=== PATIENT | male | born 1970 | race Caucasian/White ===

== ENCOUNTER → 2017-11-24 | Outpatient (CLI) | payer BC ==
[~2017-11-24] MED LIST: ASPI81TA28 PO; CEPH500C2 PO; LEVO88TA PO; OXYC-57 PO
== END | disposition home or self-care (01) ==
LOC: C.LAB 07:26
DX: E03.9 Hypothyroidism, unspecified (principal)

== ENCOUNTER 2017-12-03 12:40 | Emergency (ER) | payer BC ==
[~2017-12-03] VITALS: Ht 175.3 cm; Wt 86.5 kg
[~2017-12-03 12:40] MED LIST changes: -CEPH500C2 PO; -LEVO88TA PO; -OXYC-57 PO
[2017-12-03 12:43] VITALS: Ht 175.3 cm; Wt 86.5 kg
[2017-12-03] MEDS ORDERED: BUPIVACAINE 0.5 % 5 MG/1 ML MPF 30ML VIAL INFIL STA (12:56)
[2017-12-03] MEDS ORDERED: XYLOCAINE 1%/SOD BICARB 20 ML VIAL INFIL STA (12:56)
[2017-12-03] MEDS ORDERED: LEVO88TA PO (13:04)
--- NOTE | 2017-12-03 13:42 | EMERGENCY ROOM VISIT NOTE ---
ED Visit Note First contact with patient: 12:48 CHIEF COMPLAINT: Left index finger injury HISTORY OF PRESENT ILLNESS: This 47-year-old right hand dominant male patient presents to the emergency department approximately 1 hour after injuring the left index finger while attaching a backhoe bucket to a tractor. He states the hydraulics shifted and sheared off the tip of his left finger. The patient does believe the bone is exposed. The patient rates the pain as stinging and 5/ 10. The patient has full range of motion of the finger. No numbness or tingling. No lacerations. No other injuries. The patient has not had previous fracture to this finger. The patient has taken nothing for the pain. He states his tetanus vaccination is up-to-date. REVIEW OF SYSTEMS: A 6 system review of systems was completed with positives and pertinent negatives in the HPI. ALLERGIES: None MEDICATIONS: None PMH: None SOCIAL HISTORY: The patient lives locally with family. He denies drug, alcohol , tobacco use. PHYSICAL EXAM: Vital Signs: Reviewed Nurse's notes, vital signs stable. GENERAL : This is a 47-year-old white male, in no acute distress, but appears to be in pain, well-developed, well-nourished. MUSCULOSKELETAL: There is an avulsion of the skin of the distal phalanx of the left index finger. This is approximately detention through the fingernail. There is what is believed to be exposed bone at the base of the wound. The patient has full flexion and full extension of the left index finger and strength to resistance is 5/5. The distal phalanx is maximally tender. There is no ligamentous instability. There is moderate active bleeding. Capillary refill of the most distal portion of the finger less than 2 seconds. No tenderness of the remaining fingers or hand. Full range of motion of the wrist. NEURO: Alert and oriented to person, place, and time. Normal sensation to light and sharp touch. RADIOLOGY: L FINGER(S) MIN 2 VIEWS ROUTINE CLINICAL HISTORY: distal left index finger avulsion trauma COMPARISON: None. DISCUSSION: Partial avulsion of the soft tissue tip of the distal phalanx left second finger. Small avulsion of the tuft of the distal phalanx. No evidence of dislocation. IMPRESSION: Small partial avulsion tuft distal phalanx. Soft tissue disruption. The above report was generated using voice recognition software. It may contain grammatical, syntax or spelling errors. Electronically signed by: Jovanni Chávez M.D. 12/03/2017 1:41 PM Dictated Date/Time: 12/03/2017 1:40 PM EMERGENCY DEPARTMENT COURSE: I examined the patient. A wet to dry dressing was applied to the finger. The patient immediately states that he has already contacted Dr. Hernandez and Dr. Kuo regarding the injury and was encouraged to come here. He states Dr. Kuo did ask if the patient would like for him to contact Dr. Sheldon, but decided to wait for evaluation by orthopedics reception agent here if there is exposed bone. An x-ray of the left index finger was reviewed by myself and radiologist and showed small partial avulsion of the tuft of the distal phalanx. I did perform a digital block after obtaining consent by the patient using 3 mL 0.5% bupivacaine and 1% buffered lidocaine to help with pain. The patient was pain free throughout the rest of the visit to the ED. I consulted with [facility], and Billy Brito PA-C did come and see and evaluate the patient. He made several phone calls and attempts to get the patient seen outpatient in the office versus here in the hospital. He was unable to establish any follow-up care, so states he will discuss the case with Dr. Velez, who was currently in the OR. Dr. Velez did agree to evaluate and address the injury here in the OR today, however, did not contact the ER to inform us of this. I ordered labs, IV, and IV antibiotics for the patient, but he was taken to the OR prior to these interventions. Please see orthopedics documentation for ongoing management and care of the patient. I attest that I have personally reviewed the patient's current medication list. Patient was found to have normal blood pressure on screening and does not require follow-up. Differential diagnosis includes fracture, contusion, avulsion, distal tuft avulsion, amputation, and others DIAGNOSIS: Avulsion of the distal left index finger Current/Historical Medications Scheduled Levothyroxine Sodium (Synthroid), 88 MCG PO DAILY Allergies Coded Allergies: No Known Allergies (Unverified , 12/03/17) Vital Signs Date Time Temp Pulse Resp B/P (MAP) Pulse Ox O2 Delivery O2 Flow Rate FiO2 12/03/17 16:56 36.9 90 16 161/88 (112) 98 Room Air 12/03/17 16:37 122 18 139/107 96 Room Air 12/03/17 15:37 84 18 132/92 98 Room Air 12/03/17 14:36 83 18 135/91 98 Room Air 12/03/17 12:43 37.0 82 17 151/86 99 Room Air Laboratory Results 12/03/17 16:45 Red Blood Count 5.61, Mean Corpuscular Volume 84.5, Mean Corpuscular Hemoglobin 30.5, Mean Corpuscular Hemoglobin Concent 36.1, Mean Platelet Volume 10.1, Neutrophils (%) (Auto) 74.9, Lymphocytes (%) (Auto) 17.6, Monocytes (%) (Auto) 7.1, Eosinophils (%) (Auto) 0.0, Basophils (%) (Auto) 0.1, Neutrophils # (Auto) 5.46, Lymphocytes # (Auto) 1.28, Monocytes # (Auto) 0.52, Eosinophils # (Auto) 0.00, Basophils # (Auto) 0.01 12/03/17 16:45 Test 12/03/17 16:45 White Blood Count 7.29 K/uL (4.8-10.8) Red Blood Count 5.61 M/uL (4.7-6.1) Hemoglobin 17.1 g/dL (14.0-18.0) Hematocrit 47.4 % (42-52) Mean Corpuscular Volume 84.5 fL (80-100) Mean Corpuscular Hemoglobin 30.5 pg (25-34) Mean Corpuscular Hemoglobin Concent 36.1 g/dl (32-36) Platelet Count 185 K/uL (130-400) Mean Platelet Volume 10.1 fL (7.4-10.4) Neutrophils (%) (Auto) 74.9 % Lymphocytes (%) (Auto) 17.6 % Monocytes (%) (Auto) 7.1 % Eosinophils (%) (Auto) 0.0 % Basophils (%) (Auto) 0.1 % Neutrophils # (Auto) 5.46 K/uL (1.4-6.5) Lymphocytes # (Auto) 1.28 K/uL (1.2-3.4) Monocytes # (Auto) 0.52 K/uL (0.11-0.59) Eosinophils # (Auto) 0.00 K/uL (0-0.5) Basophils # (Auto) 0.01 K/uL (0-0.2) RDW Standard Deviation 40.0 fL (36.4-46.3) RDW Coefficient of Variation 13.0 % (11.5-14.5) Immature Granulocyte % (Auto) 0.3 % Immature Granulocyte # (Auto) 0.02 K/uL (0.00-0.02) Prothrombin Time 10.0 SECONDS (9.0-12.0) Prothromb Time International Ratio 1.0 (0.9-1.1) Activated Partial Thromboplast Time 28.2 SECONDS (21.0-31.0) Partial Thromboplastin Ratio 1.1 Anion Gap 9.0 mmol/L (3-11) Est Creatinine Clear Calc Drug Dose 87.1 ml/min Estimated GFR () 88.6 Estimated GFR (Non- 76.4 BUN/Creatinine Ratio 9.6 (10-20) Calcium Level 9.5 mg/dl (8.5-10.1) Departure Information Referrals Dustin Mack Jr,D.O. (PCP) Patient Instructions [facility]
[2017-12-03] MEDS ORDERED: CEFAZOLIN SOD 1000MG/7.5 ML IV PUSH IV STA (16:31)
[2017-12-03 16:37] VITALS: O2SAT 96
--- NOTE | 2017-12-03 16:50 | History and Physical ---
History & Physical Date Dec 03, 2017. Chief Complaint left index finger pain History of Present Illness The patient is a 47 year old male with complaints of left index finger pain following an accident with farming equipment. His left index finger was in a metallic hole to line up two pieces of equipment. Has he was trying to put a metallic nagi through the holes to hold the equipment, one piece fell and the tip of his finger was caught in the hole and the distal tip of the finger was cut off. He was brought to [facility] ER where the finger was cleaned and he is currently being set up for surgical tx. Past Medical/Surgical History Medical Problems: (1) Hypothyroidism Allergies Coded Allergies: No Known Allergies (Unverified , 12/03/17) Home Medications Scheduled Levothyroxine Sodium (Synthroid), 88 MCG PO DAILY Physical Examination Skin: warm/dry Eyes: normal inspection ENT: normal ENT inspection Head: normocephalic, atraumatic Neck: supple, no adenopathy, trachea midline Respiratory/Chest: lungs clear, normal breath sounds, no respiratory distress Cardiovascular: regular rate, rhythm Abdomen / GI: normal bowel sounds, non tender Extremities: + pertinent finding (Left hand: distal tuft of the index finger has been amputated with the distal phalanx visible. The surrounding tissue appears normal.) Neurologic/Psych: no motor/sensory deficits, alert, oriented x 3 Diagnosis Left index finger distal tuft partial amputation with exposed bone. Plan of Treatment Recommend a left index finger revision partial amputation. All potential risks, benefits, complications, alternatives, and rehab have been discussed and the patient wishes to proceed. He will be set up for surgery on 12.03.17.
[2017-12-03 16:56] LABS: BASO % 0.1 %; BASO ABS # 0.01 K/uL (0-0.2); HEMATOCRIT 47.4 % (42-52); HEMOGLOBIN 17.1 g/dL (14.0-18.0); IG# 0.02 K/uL (0.00-0.02); LYMPH % 17.6 %; LYMPH ABS # 1.28 K/uL (1.2-3.4); MEAN CELL VOLUME 84.5 fL (80-100); MEAN CORPUSCULAR HEMOGLOBIN 30.5 pg (25-34); MEAN CORPUSCULAR HGB CONC 36.1 g/dl (32-36); MEAN PLATELET VOLUME 10.1 fL (7.4-10.4); MONO % 7.1 %; MONO ABS # 0.52 K/uL (0.11-0.59); NEUT % 74.9 %; NEUT ABS # 5.46 K/uL (1.4-6.5); PLATELET COUNT 185 K/uL (130-400); WHITE BLOOD COUNT 7.29 K/uL (4.8-10.8)
[2017-12-03 17:05] LABS: PTT PATIENT 28.2 SECONDS (21.0-31.0)
[2017-12-03 17:12] LABS: CALCIUM 9.5 mg/dl (8.5-10.1); CREATININE 1.13 mg/dl (0.60-1.40); POTASSIUM 3.1 mmol/L (3.5-5.1)
[2017-12-03] MEDS ORDERED: BACITRACIN 50000 UNIT VIAL ONE (17:25)
[2017-12-03] MEDS ORDERED: BUPIVACAINE 0.5 % 5 MG/1 ML MPF 30ML VIAL ONE (17:25)
[2017-12-03] MEDS ORDERED: FENTANYL CITRATE INJ 50 MCG/1 ML 2 ML VIAL ONE (17:42)
[2017-12-03] MEDS ORDERED: MIDAZOLAM HCL 1 MG/ML 2ML VIAL ONE (17:42)
[2017-12-03] MEDS ORDERED: PROPOFOL IV EMULSION 10 MG/ML 20 ML VIAL IV ONE ×2 (17:42→18:58)
[2017-12-03] MEDS ORDERED: LIDOCAINE HCL 2% 2 ML VIAL (20MG/ML) ONE (17:42)
--- NOTE | 2017-12-03 17:47 | History & Physical Bridge Note ---
H&P Re-Evaluation Bridge Note: I have examined the patient, reviewed the History & Physical and in the interval since the performance of the History & Physical I have noted the following changes of clinical significance: No changes noted
[2017-12-03] MEDS ORDERED: ONDANSETRON INJ 2 MG/ML 2 ML VIAL ONE (18:35)
[2017-12-03] MEDS ORDERED: ONDANSETRON INJ 2 MG/ML 2 ML VIAL IV PRN (18:45)
[2017-12-03] MEDS ORDERED: SODIUM CHLORIDE 0.9% 1000ML 1,000 ML IV SCH (18:45)
[2017-12-03] MEDS ORDERED: OXYCODONE/ACETAMINOPHEN 5-325 TAB PO PRN ×2 (18:45)
[2017-12-03] MEDS ORDERED: OXYC-57 PO (18:48)
[2017-12-03] MEDS ORDERED: CEPH500C2 PO (18:48)
--- NOTE | 2017-12-03 18:49 | [facility] Post Operative Brief Note ---
Immediate Operative Summary Operative Date Dec 03, 2017. Pre-Operative Diagnosis left index finger distal tuft partial amputation with exposed bone Post-Operative Diagnosis left index finger distal tuft partial amputation with exposed bone Procedure(s) Performed left index finger, revision amputation Surgeon Dr. Bandar Velez [employer] Surgeon(s) Gabriele Zapien PA-C Estimated Blood Loss 1ml Findings Consistent with Post-Op Diagnosis Specimens no specimen per surgeon Drains None Anesthesia Type MAC (local) Complication(s) none Disposition Accompanied Pt To Recover: no Disposition: Recovery Room / PACU
--- NOTE | 2017-12-03 18:55 | Discharge Instructions ---
Discharge Instructions Date of Service Dec 03, 2017. Admission Reason for Admission: Cut Tip Of Finger Off Discharge Discharge Diagnosis / Problem: S/P left index finger revision amputation Discharge Goals Goal(s): Decrease discomfort, Improve function Activity Recommendations Activity Limitations: per Instructions/Follow-up section . Instructions / Follow-Up Instructions / Follow-Up ACTIVITY RECOMMENDATIONS: * Avoid lifting anything heavier than a medium water glass until your first post operative visit. * Keep splint on at all times to help protect the wound. * Follow up in [address] Velez or his PA. [place] an [place] [facility] [place] [phone] SPECIAL CARE INSTRUCTIONS: * Your bandage should be left in place until 48 hours after the surgery. Then apply dry dressing changes with the splint on at all times besides for hygiene. * Some drainage onto the dressing may occur. This is normal. * If the bandage feels excessively tight, you may loosen the elastic bandage. Then call the physician's office for further instructions. * If possible, keep your hand elevated above the level of your heart for the first 2 post operative days. You may use a sling if necessary. * Splint is on at all times except for hygiene purposes. This is to prevent bumping into it. * Take antibiotics as directed. This will be for 5 days to help prevent infection. * Stitches are to remain in for about 3 weeks to help with healing. SPECIAL PRECAUTIONS: * If you notice increased drainage, fever over 101 degrees F. or severe, unremitting pain, call your physician/office at . * You may have been prescribed pain medication. If you experience nausea and/or skin rash, discontinue this medication and contact our office for an alternative medication. FOLLOW UP VISIT: If appointment is not already scheduled: Please call [facility] to make a follow-up appointment 7 days after the surgery with Dr. Velez or his PA after your surgery at . Current Hospital Diet Patient's current hospital diet: Discharge Diet Recommended Diet: Regular Diet Procedures Procedures Performed: left index finger, revision partial amputation Pending Studies Studies pending at discharge: no Medical Emergencies . Who to Call and When: Medical Emergencies: If at any time you feel your situation is an emergency, please call 911 immediately. . Non-Emergent Contact Non-Emergency issues call your: Surgeon Call Non-Emergent contact if: temperature is above 101.5, your pain is worsening, wound has increased drainage, wound has increased redness . "Provider Documentation" section prepared by Dustin Zapien. . VTE Core Measure Inpt VTE Proph given/why not?: Treatment not indicated [place] Drug Monitoring Program Search Results: patient reviewed within database, no issues identified
[2017-12-03] MEDS ORDERED: PERCOCET HOME PACK PO ONE (19:15)
--- NOTE | 2017-12-03 19:20 | Anesthesiology Progress Note ---
Anesthesia Post Op Note Date & Time Dec 03, 2017 at 19:20 Vital Signs Pain Intensity: 0 Vital Signs Past 12 Hours Date Time Temp Pulse Resp B/P (MAP) Pulse Ox O2 Delivery O2 Flow Rate FiO2 12/03/17 19:18 37.4 12/03/17 19:08 73 16 98 12/03/17 19:08 73 16 12/03/17 19:06 132/85 12/03/17 19:03 74 14 12/03/17 19:03 73 14 94 12/03/17 19:02 76 16 12/03/17 19:02 77 16 94 12/03/17 19:01 131/89 12/03/17 18:57 78 15 99 12/03/17 18:57 78 15 12/03/17 18:56 138/87 12/03/17 18:53 130/87 12/03/17 18:52 37.1 78 16 130/87 98 Room Air 12/03/17 16:56 36.9 90 16 161/88 (112) 98 Room Air 12/03/17 16:37 122 18 139/107 96 Room Air 12/03/17 15:37 84 18 132/92 98 Room Air 12/03/17 14:36 83 18 135/91 98 Room Air 12/03/17 12:43 37.0 82 17 151/86 99 Room Air Notes Mental Status: alert / awake / arousable, participated in evaluation Pt Amnestic to Procedure: Yes Nausea / Vomiting: adequately controlled Pain: adequately controlled Airway Patency, RR, SpO2: stable & adequate BP & HR: stable & adequate Hydration State: stable & adequate Anesthetic Complications: no major complications apparent
[2017-12-03 19:21] VITALS: BP 143/83; PULSE 76; TEMP 37.4; O2SAT 99
[2017-12-03] MEDS ORDERED: ATROPINE SULFATE 0.1 MG/ML 5ML SYR IV PRN (19:30)
[2017-12-03] MEDS ORDERED: EpHEDrine SULFATE INJ 50 MG/ML AMP IV PRN (19:30)
[2017-12-03 19:54] VITALS: BP 135/82; PULSE 82; TEMP 37.1; O2SAT 99
--- NOTE | 2017-12-04 04:01 | OPERATIVE REPORT ---
DATE OF OPERATION: 12/03/2017 PREOPERATIVE DIAGNOSIS: Left index finger partial amputation, traumatic. POSTOPERATIVE DIAGNOSIS: Same. PROCEDURE PERFORMED: Left index finger revision amputation. SURGEON: Mehrdad Velez DO. TELEMETRY TECH: Dustin Zapien PA-C. SUPERVISOR VOLUNTEER SERVICES: Dustin Zapien PA-C who was present for patient positioning, sterile prep and drape, management of retractors and instruments. He was present through the critical portions of the case including wound closure, application of sterile dressing and transport of the patient to recovery. ANESTHESIA: Monitored anesthesia care with local digital block. SPECIMENS: None. DRAINS: None. COMPLICATIONS: None. BLOOD LOSS: 1 mL. PERTINENT HISTORY: This is a 47-year-old gentleman, who was working with a backhoe and bucket. He was changing the bucket and was attempting to put a pin in through a captured hole. The bucket shifted and caused an open distal tuft fracture/partial amputation of his left index finger. He applied direct pressure and then presented to [facility]. He was evaluated and radiographed and noted to have an open distal tuft fracture/partial amputation of the left index finger and Orthopedics was consulted. He had no other associated injuries. The patient was seen in the Emergency Department and then scheduled for surgery as indicated. All potential risks, benefits, complications, alternatives, rehab, potential for incomplete relief of symptoms, need for further surgery, DVT, PE, , persistent pain, swelling, scarring, weakness, neurovascular injury, wound complications were discussed with the patient and his father, and the patient decided to proceed with the procedure as indicated. DESCRIPTION OF PROCEDURE: The patient was taken to the operative suite, placed supine on the operating room table. After review of the consent and identification of proper operative site, the patient was sedated and left upper extremity was then sterilely prepped and draped in the usual sterile fashion, elevated and the index finger was exsanguinated with a Harwood drain, and a Miya tourniquet was applied at the base of the index finger. Next, approximately 20 mL of 0.5% Marcaine plain was then injected in a digital block fashion at the base of the index finger and the dorsum of the hand. Next, the 15 blade scalpel was then used to mobilize soft tissue medial, lateral, and volar. The patient had requested that we attempt to save as much of the nail plate and germinal matrix as possible due to his outdoor and hunting activities. The medial and lateral aspects of the distal index finger pulp were then incised in a small V fashion for relief cuts medial and lateral. Small segments of tissue were resected. The volar aspect of the flap was then debrided with a 15 blade scalpel back to viable tissue. Next, the rongeur was then used to resect a portion of the distal tuft and distal phalanx appropriate to provide for closure of the volar based advancement flap of the left index finger. The wound was copiously irrigated with sterile normal saline. A rongeur was then used to debride the distal phalanx and then full-thickness tissue flap was then closed medial and lateral with interrupted 4-0 nylon sutures and then the volar aspect of the flap was then closed to the nail plate, rinsed with suture placed through the nail plate with a 4-0 nylon suture. Adequate cosmesis and coverage of the bone was achieved. Final irrigation performed with sterile normal saline and then a sterile compressive dressing was applied, overwrapped with an Alumafoam splint and Coban. The tourniquet was released. The patient was awakened and taken to recovery room in stable condition. I attest to the content of the Intraoperative Record and any orders documented therein. Any exception s are noted below.
== END 2017-12-03 20:05 | disposition home or self-care (01) ==
LOC: C.EDB 12:41 → C.EDD 20:05
DX: S68.121A Partial traumatic metacarpophalangeal amputation of left index finger, initial encounter (principal); W31.83XA Contact with special construction vehicle in stationary use, initial encounter; W30.89XA Contact with other specified agricultural machinery, initial encounter; E03.9 Hypothyroidism, unspecified